=== PATIENT | female | born 1930 | race Native Hawaiian/Other Pacific Islander ===

== ENCOUNTER → 2017-06-18 | Outpatient (CLI) | payer OTHER ==
[~2017-06-18] MED LIST: ACET500C4 PO; ALLO100T PO; ASPI81TA2 PO; CALC-590 PO; FLUT15OI4 TP; GLUC1CAP PO; HYDR12.530 PO; LISI40TA4 PO; LORA10TA7 PO; METF500T4 PO; METO-323 PO; OMEP20 PO; SIMV20TA6 PO
== END | disposition home or self-care (01) ==
LOC: RADPV 10:54
PROVIDERS: ATTEND Internal Medicine
DX: M16.0 Bilateral primary osteoarthritis of hip (principal)
CPT/HCPCS: 72170